=== PATIENT | male | born 1995 | race Caucasian/White ===

== ENCOUNTER 2019-10-24 12:18 | Emergency (ER) | payer SELFPAY ==
[~2019-10-24] VITALS: Ht 188 cm; Wt 83.9 kg
[2019-10-24 12:19] VITALS: BP 153/97; Ht 188 cm; Wt 83.9 kg
== END 2019-10-24 12:55 | disposition other institution (70) ==
LOC: ED 12:18
DX: R00.0 Tachycardia, unspecified (principal); F15.129 Other stimulant abuse with intoxication, unspecified
CPT/HCPCS: G0480; J7030

== ENCOUNTER 2019-10-24 12:18 | Emergency (ER) | payer OTHER | END 2019-10-24 12:55 | disposition other institution (70) | LOC: ED 12:18 | DX: Z02.89 Encounter for other administrative examinations (principal) ==